=== PATIENT | female | born 1955 | race Caucasian/White ===

== ENCOUNTER 2016-07-15 22:54 | Emergency (ER) | payer SELFPAY ==
[~2016-07-15] VITALS: Ht 165.1 cm; Wt 86.4 kg
[~2016-07-15 22:54] MED LIST: ATROPINE SULFATE 0.1 MG/ML 10 ML SYRINGE IVP ONE; DEXTROSE 50%-WATER 25 GM/50 ML SYRINGE IVP ONE; SODIUM BICARBONATE [ADULT] 8.4% 50 MEQ/50 ML SYRINGE IVP ONE
[2016-07-15 23:00] VITALS: BP 0/0
[2016-07-15 23:22] LABS: GLUCOSE,POINT OF CARE 267 MG/DL (70-110)
== END 2016-07-16 01:48 | disposition expired ==
LOC: EMS 22:56
DX: I46.9 Cardiac arrest, cause unspecified (principal); E11.65 Type 2 diabetes mellitus with hyperglycemia; I10 Essential (primary) hypertension
CPT/HCPCS: 31500; 82962; 99291; J0461; J3490